=== PATIENT | male | born 1990 | race Caucasian/White ===

== ENCOUNTER 2019-12-09 14:32 | Inpatient (IN) | payer MEDICAID ==
[~2019-12-09] VITALS: Ht 182.9 cm; Wt 104.2 kg
--- NOTE | 2019-12-09 18:10 | NUR ---
Pt. admitted to the unit at 1810 after being transferred from [facility] on a 5150 for DTS. Pt. brought up in a w/c accompanied by security and tech. Safety check and belongings inventoried by Jovanna Newell. Pt. has a history of schizophrenia, methamphetamine use (last used 3 days ago), and alcohol use (last drink was yesterday). Pt. was previously reporting S/I with a plan to run in front of traffic or jump off a bridge. However he is currently denying S/I at this time, but admits he has been feeling suicidal X10 years. Pt. does report a previous S/A to cut himself with a knife. Pt. is homeless, and also presents with paranoid delusions r/t life on the streets. He stated, "Everything is falling apart, I'm homeless and people are chasing after me." No medical issues reported, however pt. has calluses on bottom of bilateral feet r/t walking outdoors. PRN Tylenol administered with effectiveness and Lotion provided. Will monitor. Also administered PRN Ativan at HS r/t anxiety, pt. appears to be resting comfortably.
[2019-12-09] MEDS: acetaminophen 325mg tablet PO PRN (19:33)
[2019-12-09 20:00] VITALS: BP 106/83
[2019-12-09] MEDS ORDERED: RISP3TAB11 PO (20:48)
[2019-12-09] MEDS ORDERED: AMPH10CA3 PO (20:48)
[2019-12-09] MEDS: risperiDONE 0.5mg tablet PO SCH (21:46)
--- NOTE | 2019-12-09 22:30 | NUR ---
Notified Dr. Pak, that pt. presents as a high suicide risk when administered the [place] Suicide Rating Scale, r/t having suicidal thoughts with a plan in the last month, however has not had any suicide attempts within the last 3 months. Pt. reports a hx of a suicide attempt to cut himself with a knife. Pt. is currently denying any S/I or thoughts of harming himself while on the unit. Per Dr. Pak, maintain Q 15min safety checks and no further interventions needed for pt. safety at this time. Will endorse to AM shift. Also, pt. reports a history of alcohol consumption of a six-pack of beer 3X a week. His last drink was yesterday (two shots), however he is not showing any s/s of alcohol withdrawal at this time (V/S WNL, no sweating, no tremors, no seizures). Pt. denies any history of alcohol withdrawal. Per Dr. Pak, monitor pt. V/S Q 4 hours while awake, call MD if 2 or more are out of range of if pt. is sweating/having tremors. Will input an intervention and endorse to AM shift.
[2019-12-09] MEDS ORDERED: magnesium hydroxide 30ml (MOM) UD suspension PO PRN (22:55)
[2019-12-09] MEDS ORDERED: acetaminophen 325mg tablet PO PRN (22:55)
[2019-12-09] MEDS ORDERED: mag hydrox/Alum hydrox/simeth 30ml oral suspension PO PRN (22:55)
[2019-12-09] MEDS ORDERED: loperamide 2mg capsule PO PRN (22:55)
[2019-12-09 23:00] VITALS: BP 126/74
[2019-12-09] MEDS: LORazepam 1 MG tablet PO PRN (23:14)
[2019-12-10 07:08] LABS: CHOL/HDL RATIO 3.4 (0.00-4.99); CHOLESTEROL 117 MG/DL (0-200); HDL CHOLESTEROL 34 MG/DL (35-60); LDL CHOLESTEROL 70 MG/DL (50-100); TRIGLYCERIDES 105 MG/DL (20-135)
[2019-12-10 07:11] LABS: HEMOGLOBIN A1C 5.3 % (4.5-6.2)
[2019-12-10 08:00] VITALS: BP 113/65
[2019-12-10] MEDS: AMPHETAMINE PO SCH (08:00)
[2019-12-10] MEDS: DEXTROAMPHETAMINE PO SCH (08:00)
--- NOTE | 2019-12-10 10:01 | NUR ---
Malnutrition consult. Patient reports recent weight loss of 10 lbs and poor appetite. History of EtOH drinking 6 pack of beer 3 times per week and methamphetamine abuse. Poor appetite may be r/t EtOH and methamphetamine abuse as it is an appetite suppressant. No documented weight history. Current weight 129% IBW. Eating 100% of regular diet. No edema. Does not appear to be malnourished at this time. Will follow per policy. Addendum: 12/10/19 at [address] Amended: Links added.
[2019-12-10 12:00] VITALS: BP 135/80
[2019-12-10] MEDS: acetaminophen 325mg tablet PO PRN ×2 (12:02→19:56)
[2019-12-10] MEDS: LORazepam 1 MG tablet PO PRN ×2 (13:49→19:55)
--- NOTE | 2019-12-10 17:07 | NUR ---
Nursing Progress Note Legal hold: N/A Client on Voluntary status Report received from JAZMÍN Tyson with use of SBAR. Why are they here: Pt. admitted to the unit at 1810 after being transferred from [facility] on a 5150 for DTS. Pt. brought up in a w/c accompanied by security and tech. Safety check and belongings inventoried by Jovanna Newell. Pt. has a history of schizophrenia, methamphetamine use (last used 3 days ago), and alcohol use (last drink was yesterday). Pt. was previously reporting S/I with a plan to run in front of traffic or jump off a bridge. However he is currently denying S/I at this time, but admits he has been feeling suicidal X10 years. Pt. does report a previous S/A to cut himself with a knife. Pt. is homeless, and also presents with paranoid delusions r/t life on the streets. He stated, "Everything is falling apart, I'm homeless and people are chasing after me." Assessment: What happened this shift: Patient is observed sleeping at change of shift. He joins others in the group room for meals but then returns back to his room to sleep. Patient states that he continues with thoughts of suicide but does not report a plan. He states that because he is on the unit he has lost his job. He reports straining the support of his parents who live here in [place] and feeling like he is alone. He states that he has struggled with his addiction to drugs and alcohol for a long time. He has had treatment before and has not really given it any thought currently. Patient requests to obtain back card information from his wallet to check balances. He states that he has anxiety and request Ativan. Patient denies any needs. S/I, H/I: passive suicidal thoughts A/VH: none reported Sleep: 8.5hrs NOC ADL's: Independent Group attendance: No Were meds taken: N/A Any med S/E: None reported or observed Mental Status Exam Appearance: Clean and wearing green scrubs. Eye contact: direct. Behavior: Cooperative, friendly Speech: Soft, normal rate and rhythm Mood: depressed Affect: blunted Thought process: Linear. Thought Content: his struggles Cognition: A/O X 4 Insight: Fair to good Judgment: Fair Interventions: PRN's used: Ativan for anxiety Therapeutic interventions: 1:1 therapeutic assessment, maintained safe therapeutic milieu, provided active listening with positive reinforcement, provided medication administration/education/monitoring as needed; Q15 safety checks. Restraints/seclusion/emergency medication: N/A Justification of Continued Inpatient Treatment: Continued therapeutic support and medication adjustment and monitoring needed to provide stabilization, prevent decompensation, and improve coping mechanisms decreasing risk to patient and re-admittance.
[2019-12-10 17:34] VITALS: BP 134/76
[2019-12-10 19:00] VITALS: BP 125/71
[2019-12-10] MEDS: risperiDONE 0.5mg tablet PO SCH (21:17)
--- NOTE | 2019-12-11 00:25 | NUR ---
Nursing Progress Note Legal hold: 5150 Client on legal hold for DTS Report received from JAZMÍN Gauthier with use of SBAR. Why are they here: Pt. admitted to the unit at 1810 after being transferred from [facility] on a 5150 for DTS. Pt. brought up in a w/c accompanied by security and tech. Safety check and belongings inventoried by Jovanna Newell. Pt. has a history of schizophrenia, methamphetamine use (last used 3 days ago), and alcohol use (last drink was yesterday). Pt. was previously reporting S/I with a plan to run in front of traffic or jump off a bridge. However he is currently denying S/I at this time, but admits he has been feeling suicidal X10 years. Pt. does report a previous S/A to cut himself with a knife. Pt. is homeless, and also presents with paranoid delusions r/t life on the streets. He stated, "Everything is falling apart, I'm homeless and people are chasing after me." Assessment What happened this shift: Pt isolates to room entire shift. Endorses paranoid thoughts "I have people after me, I know it's true." He states he has been in mental health hospitals in the past for SI and a couple attempts. "I am homeless from time to time so this is a big struggle for me. It really sets me over the edge. 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 "They came here for [place]. I had a good relationship with them but now they need to see me get better before they will let me back in, yeah know?" Pt states he has chronic lower back pain; requesting Motrin. Pt states he Trazodone gives "me restless legs" and he would not want it for sleep. Pt states he has not had a BM and would like something to help in the AM. Conferred with NICOLA Smalls and orders for ibuprofen, Benadryl and Colace granted. S/I, H/I: Denies Both; "I had some SI in the morning A/VH: Denies Both Sleep: See Sleep Assessment ADL's: Independent Group attendance: N/A Were meds taken: Yes Any med S/E: None reported nor observed Mental Status Exam Appearance: Clean, wearing green scrubs and nonskid socks. Eye contact: Direct Behavior: Cooperative, Isolated to room Speech: Soft, normal rate and rhythm Mood: Anxious 05/02 Affect: Blunted Thought process: Linear, Paranoid Thought Content: People are after him Cognition: A/Ox4 Insight: Poor to Fair Judgment: Fair Interventions: PRN's used: Ativan 1mg for anxiety, Tylenol 650mg for pain Therapeutic interventions: 1:1 therapeutic assessment, maintained safe therapeutic milieu, provided active listening with positive reinforcement, provided medication administration/education/monitoring as needed; Q15 safety checks. Restraints/seclusion/emergency medication: N/A Justification of Continued Inpatient Treatment: Continued therapeutic support and medication adjustment and monitoring needed to provide stabilization, prevent decompensation, and improve coping mechanisms decreasing risk to patient and re-admittance.
[2019-12-11 07:43] VITALS: BP 117/64
[2019-12-11] MEDS: AMPHETAMINE PO SCH (08:00)
[2019-12-11] MEDS ORDERED: docusate sod 100mg capsule PO PRN (08:00)
[2019-12-11] MEDS: DEXTROAMPHETAMINE PO SCH (08:00)
[2019-12-11] MEDS: ibuprofen 200mg tablet PO PRN (11:06)
[2019-12-11] MEDS: LORazepam 1 MG tablet PO PRN ×2 (11:06→19:48)
--- NOTE | 2019-12-11 12:07 | NUR ---
PSYCHOSOCIAL ASSESSMENT Jos is a 29 y/o male who was placed on 5150 for danger to self, "I was on the streets, started stressing out and thinking about suicide. I get down and depressed and want to jump off a bridge". Jos reported he has been homeless for the past 3 weeks, prior to that he was living with a friend. 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 He endorsed paranoid delusions regarding people following him. He has had multiple ED contacts and crisis evaluations recently. He reported he has been in [place] for the past year and a half, however, has [facility]. He reported he has been hospitalized a couple times in the past. He reported a previous suicide attempt "a long time ago" in which he cut himself with a knife. He initially stated he would like to leave [place] due to people following him. Discussed [facility] as NICOLA Austin, had discussed it with him. Jos reported he would like to go to [facility]. Provided him with the phone numbers to call to change his [facility] to [facility]. Roll Skinner will refer him to [facility]. Jos reported using meth on occasion (ED U tox was positive). He was cooperative with the assessment, however, stated he did not feel well and was coughing. He asked expert medical writer to check on him later. He was oriented x's 4. He denied any auditory hallucinations nor did he appear to be responding to internal stimuli.He was primarily paranoid. He denied any current SI or HI. GERSON Brownlee Addendum: 12/11/19 at 1210 by Slime Roa SS Amended: Links added.
--- NOTE | 2019-12-11 13:45 | NUR ---
[facility] REFERRAL Completed and faxed [facility] referral. GERSON Brownlee
--- NOTE | 2019-12-11 16:35 | NUR ---
Nursing Progress Note Legal hold: N/A Client on Voluntary status Report received from HARITHA Schultz with use of SBAR. Why are they here: Pt. admitted to the unit at 1810 after being transferred from [facility] on a 5150 for DTS. Pt. brought up in a w/c accompanied by security and tech. Safety check and belongings inventoried by Jovanna Newell. Pt. has a history of schizophrenia, methamphetamine use (last used 3 days ago), and alcohol use (last drink was yesterday). Pt. was previously reporting S/I with a plan to run in front of traffic or jump off a bridge. However he is currently denying S/I at this time, but admits he has been feeling suicidal X10 years. Pt. does report a previous S/A to cut himself with a knife. Pt. is homeless, and also presents with paranoid delusions r/t life on the streets. He stated, "Everything is falling apart, I'm homeless and people are chasing after me." Assessment What happened this shift: Patient has stayed in bed all day. VS done q8hrs. His last VS were 141/87, HR 85, O2 98, T 98.5, RR 14. Pt also c/o constipation and was given prune juice, MOM and colace. Reports he could have had a BM yesterday but "I don't know maybe 3-4 days ago." S/I, H/I: Passive SI A/VH: none reported Sleep: 9.75 NOC shift ADL's: Independent Group attendance: n/a Were Meds taken: PRN's Any med S/E: None reported or observed Mental Status Exam Appearance: Hospital scrubs Eye contact: Fair Behavior: Cooperative, polite Speech: Soft, normal rate and rhythm Mood: depressed Affect: blunted Thought process: Linear. Thought Content: being homeless Cognition: A/O X 4 Insight: Fair Judgment: Fair Interventions: PRN's used: MOM, Colace Therapeutic interventions: 1:1 therapeutic assessment, maintained safe therapeutic milieu, provided active listening with positive reinforcement, provided medication administration/education/monitoring as needed; Q15 safety checks. Restraints/seclusion/emergency medication: N/A Justification of Continued Inpatient Treatment: Continued therapeutic support and medication adjustment and monitoring needed to provide stabilization, prevent decompensation, and improve coping mechanisms decreasing risk to patient and re-admittance.
[2019-12-11 19:00] VITALS: BP 130/70
[2019-12-11] MEDS: acetaminophen 325mg tablet PO PRN (19:44)
[2019-12-11] MEDS: risperiDONE 0.5mg tablet PO SCH ×3 (20:01→20:42)
--- NOTE | 2019-12-11 20:02 | NUR ---
Pt. reported stomach upset, chronic back pain, and increased anxiety. He appears visibly anxious AEB restless leg movements, he states, "I feel like everyone out there is talking about me." PRN Maalox, Tylenol, and Ativan administered, will continue to monitor.
[2019-12-11] MEDS: traZODone 50mg tablet PO PRN (20:35)
[2019-12-11] MEDS ORDERED: diphenhydrAMINE 25mg capsule PO PRN (21:00)
--- NOTE | 2019-12-11 22:51 | NUR ---
Nursing Progress Note Legal hold: N/A Client on Voluntary status Report received from HARITHA Gatica with use of SBAR. Why are they here: Pt. admitted to the unit at 1810 after being transferred from [facility] on a 5150 for DTS. Pt. brought up in a w/c accompanied by security and tech. Safety check and belongings inventoried by Jovanna Newell. Pt. has a history of schizophrenia, methamphetamine use (last used 3 days ago), and alcohol use (last drink was yesterday). Pt. was previously reporting S/I with a plan to run in front of traffic or jump off a bridge. However he is currently denying S/I at this time, but admits he has been feeling suicidal X10 years. Pt. does report a previous S/A to cut himself with a knife. Pt. is homeless, and also presents with paranoid delusions r/t life on the streets. He stated, "Everything is falling apart, I'm homeless and people are chasing after me." Assessment What happened this shift: Patient has stayed in bed all evening shift, only getting up to request medications. Patients evening vitals signs are Temp 98.8, HR 89, RR 14, SPo2 98% and BP 130/70. Patient appears paranoid and backs away when nurse is attempting assessment and does not want RN to touch him. Patient states that his day was "Not good." and appears fearful with nurse in his presence. He is comparative for all medications and requests Trazodone for sleep which is provided. S/I, H/I: Passive SI A/VH: None reported Sleep: Currently sleeping, see sleep assessment ADL's: Independent Group attendance: No groups this shift Were Meds taken: PRN's Any med S/E: None reported or observed Mental Status Exam Appearance: Hospital scrubs Eye contact: Fair Behavior: Cooperative, polite Speech: Soft, normal rate and rhythm Mood: Depressed, fearful Affect: Blunted Thought process: Linear. Thought Content: Complaints about not sleeping Cognition: A/O X 4 Insight: Fair Judgment: Fair Interventions: PRN's used: Trazodone, tylenol, Ativan Therapeutic interventions: 1:1 therapeutic assessment, maintained safe therapeutic milieu, provided active listening with positive reinforcement, provided medication administration/education/monitoring as needed; Q15 safety checks. Restraints/seclusion/emergency medication: N/A Justification of Continued Inpatient Treatment: Continued therapeutic support and medication adjustment and monitoring needed to provide stabilization, prevent decompensation, and improve coping mechanisms decreasing risk to patient and re-admittance.
[2019-12-12 07:31] VITALS: BP 123/72
[2019-12-12] MEDS: DEXTROAMPHETAMINE PO SCH (08:00)
[2019-12-12] MEDS: AMPHETAMINE PO SCH (08:00)
[2019-12-12] MEDS: LORazepam 1 MG tablet PO PRN (16:25)
--- NOTE | 2019-12-12 18:01 | NUR ---
Nursing Progress Note Legal hold: N/A Client on Voluntary status Report received from HARITHA Adkins with use of SBAR. Why are they here: Pt. admitted to the unit at 1810 after being transferred from [facility] on a 5150 for DTS. Pt. brought up in a w/c accompanied by security and tech. Safety check and belongings inventoried by Jovanna Newell. Pt. has a history of schizophrenia, methamphetamine use (last used 3 days ago), and alcohol use (last drink was yesterday). Pt. was previously reporting S/I with a plan to run in front of traffic or jump off a bridge. However he is currently denying S/I at this time, but admits he has been feeling suicidal X10 years. Pt. does report a previous S/A to cut himself with a knife. Pt. is homeless, and also presents with paranoid delusions r/t life on the streets. He stated, "Everything is falling apart, I'm homeless and people are chasing after me." Assessment What happened this shift: Patient stayed in bed most of this shift. He was up more today than yesterday. He was observed sitting in the back of the community room watching a movie and having snacks. PRN Ativan and Tylenol given due to anxiety and a KIM. He discussed the program here asking questions and asked if he would get help w/housing. S/I, H/I: Passive SI A/VH: None reported Sleep: Napped throughout the day ADL's: Independent Group attendance: Outside group Were Meds taken: PRN's Any med S/E: None reported or observed Mental Status Exam Appearance: Hospital scrubs Eye contact: Fair Behavior: Cooperative, polite Speech: Soft, normal rate and rhythm Mood: Depressed, isolative Affect: Blunted Thought process: Linear. Thought Content: Homelessness Cognition: A/O X 4 Insight: Fair Judgment: Fair Interventions: PRN's used: Trazodone, tylenol, Ativan Therapeutic interventions: Provided therapeutic communication and active listening, provided resources for housing and [place] [facility] [place], provided medication administration/education/monitoring as needed; Q15 safety checks. Restraints/seclusion/emergency medication: N/A Justification of Continued Inpatient Treatment: Continued therapeutic support and medication adjustment and monitoring needed to provide stabilization, prevent decompensation, and improve coping mechanisms decreasing risk to patient and re-admittance.
[2019-12-12] MEDS: acetaminophen 325mg tablet PO PRN (18:12)
[2019-12-12 19:00] VITALS: BP 130/67
[2019-12-12] MEDS: traZODone 50mg tablet PO PRN (19:41)
[2019-12-12] MEDS: risperiDONE 0.5mg tablet PO SCH (19:42)
[2019-12-12] MEDS: oseltamivir phos 75mg capsule PO SCH (20:00)
[2019-12-12] MEDS: ibuprofen 200mg tablet PO PRN (20:19)
--- NOTE | 2019-12-13 03:41 | NUR ---
Nursing Progress Note Legal hold: N/A Client on Voluntary status Report received from HARITHA Gauthier with use of SBAR. Why are they here: Pt. admitted to the unit at 1810 after being transferred from [facility] on a 5150 for DTS. Pt. brought up in a w/c accompanied by security and tech. Safety check and belongings inventoried by Jovanna Newell. Pt. has a history of schizophrenia, methamphetamine use (last used 3 days ago), and alcohol use (last drink was yesterday). Pt. was previously reporting S/I with a plan to run in front of traffic or jump off a bridge. However he is currently denying S/I at this time, but admits he has been feeling suicidal X10 years. Pt. does report a previous S/A to cut himself with a knife. Pt. is homeless, and also presents with paranoid delusions r/t life on the streets. He stated, "Everything is falling apart, I'm homeless and people are chasing after me." Assessment What happened this shift: Patient stayed in bed most of the evening. He was agreeable to a 1:1 assessment this evening and seemed lest paranoid of staff. He requested his medications early this evening around 1945 which were given. hew as hesitant to take the medications, asking a couple times what they were before taking them. Patient then ate his snack in his room and promptly put himself to bed. S/I, H/I: Passive SI A/VH: None reported Sleep: Currently sleeping, see sleep assessment ADL's: Independent Group attendance: Outside group Were Meds taken: PRN's Any med S/E: None reported or observed Mental Status Exam Appearance: Hospital scrubs Eye contact: Fair Behavior: Cooperative, polite Speech: Soft, normal rate and rhythm Mood: Depressed, isolative Affect: Blunted Thought process: Linear. Thought Content: Homelessness Cognition: A/O X 4 Insight: Fair Judgment: Fair Interventions: PRN's used: Trazodone, Ibuprofen Therapeutic interventions: Provided therapeutic communication and active listening, provided resources for housing and changing medical from out of [facility] [place], provided medication administration/education/monitoring as needed; Q15 safety checks. Restraints/seclusion/emergency medication: N/A Justification of Continued Inpatient Treatment: Continued therapeutic support and medication adjustment and monitoring needed to provide stabilization, prevent decompensation, and improve coping mechanisms decreasing risk to patient and re-admittance.
[2019-12-13 07:59] VITALS: BP 125/76
[2019-12-13] MEDS: oseltamivir phos 75mg capsule PO SCH (09:31)
[2019-12-13] MEDS ORDERED: RISP0.5T3 PO (12:08)
--- NOTE | 2019-12-13 12:48 | NUR ---
DISCHARGE NOTE Patient states he has a bus ticket and will be going to a "[employer]" but he cannot tell me whcih one. Then he states, "God is good I will find one." Patient's personal belongings inventoried by Laxmi LEO and returned to him. Pt plans to get on a bus and leave this area. He shared that "people in [place] are strange, I have never encountered people like this before." He denies smoking and did not want any smoking cessation information.
== END 2019-12-13 12:50 | disposition short-term general hospital (02) | DRG 760 ==
LOC: ADULT MH 14:32
PROVIDERS: ADMIT Psychiatry & Neurology Psychiatry; ATTEND Psychiatry & Neurology Psychiatry
DX: F22 Delusional disorders (principal); R45.851 Suicidal ideations; F10.10 Alcohol abuse, uncomplicated; F90.9 Attention-deficit hyperactivity disorder, unspecified type; F15.10 Other stimulant abuse, uncomplicated; F43.21 Adjustment disorder with depressed mood; F17.210 Nicotine dependence, cigarettes, uncomplicated; F43.10 Post-traumatic stress disorder, unspecified; Z59.0 Homelessness; Z82.49 Family history of ischemic heart disease and other diseases of the circulatory system; Z81.8 Family history of other mental and behavioral disorders; Z71.6 Tobacco abuse counseling; Z71.41 Alcohol abuse counseling and surveillance of alcoholic; Z71.51 Drug abuse counseling and surveillance of drug abuser
CPT/HCPCS: 36415; 80061; 83036; 87081; 99285

== ENCOUNTER 2020-05-18 22:30 | Emergency (ER) | payer MEDICAID ==
[~2020-05-18] VITALS: Ht 182.9 cm; Wt 109.1 kg
[~2020-05-18 22:30] MED LIST: RISP0.5T3 PO
[2020-05-18 23:18] LABS: HEMOGLOBIN 15.6 g/dl (14.0-17.9); MEAN PLATELET VOLUME 7.6 FL (7.4-10.4)
[2020-05-18 23:19] LABS: BASOPHILS # (AUTO) 0.1 X10'3 (0-0.2); BASOPHILS % (AUTO) 0.5 % (0-1); EOSINOPHILS # (AUTO) 0.1 X10'3 (0-0.9); EOSINOPHILS % (AUTO) 0.5 % (0-6); HEMATOCRIT 46.3 % (42.0-52.0); LYMPHOCYTES # (AUTO) 1.7 X10'3 (1.1-4.8); LYMPHOCYTES % (AUTO) 13.3 % (21-51); MEAN CORPUSCULAR HEMOGLOBIN 29.3 PG (27.0-31.0); MEAN CORPUSCULAR HGB CONC 33.8 g/dL (33.0-36.5); MEAN CORPUSCULAR VOLUME 86.6 FL (78-98); MONOCYTES # (AUTO) 1.6 X10'3 (0-0.9); MONOCYTES % (AUTO) 12.4 % (2-12); NEUTROPHILS # (AUTO) 9.2 X10'3 (1.8-7.7); NEUTROPHILS % (AUTO) 73.3 % (42-75); PLATELET COUNT 248 X10'3 (140-440); RED BLOOD COUNT 5.34 X10'6 (4.70-6.10); RED CELL DISTRIBUTION WIDTH 12.9 % (11.5-14.5); WHITE BLOOD COUNT 12.6 X10'3 (4.5-11.0)
[2020-05-18 23:30] LABS: ALANINE AMINOTRANSFERASE 33 U/L (12-78); ALBUMIN 4.5 G/DL (3.4-5.0); ALBUMIN/GLOBULIN RATIO 1.5 (1.1-1.5); ALKALINE PHOSPHATASE 72 IU/L (46-116); ANION GAP 15 (8-16); ASPARTATE AMINO TRANSFERASE 20 U/L (10-37); BILIRUBIN,TOTAL 1.1 MG/DL (0.1-1.0); BLOOD UREA NITROGEN 17 MG/DL (7-18); BUN/CREATININE RATIO 12.8 (5.4-32.0); CALCIUM 9.2 MG/DL (8.5-10.1); CHLORIDE 102 MMOL/L (99-107); CREATININE 1.33 MG/DL (0.60-1.10); ETHANOL < 0.010 GM/DL (0.0-0.010); GLUCOSE 112 MG/DL (70-104); POTASSIUM 3.4 MMOL/L (3.5-5.1); SODIUM 139 MMOL/L (135-145); TOTAL CARBON DIOXIDE 21.6 MMOL/L (24-32); TOTAL PROTEIN 7.6 G/DL (6.4-8.2); eGFR 63 ML/MIN
[2020-05-18 23:58] LABS: URINE AMPHETAMINE SCREEN POSITIVE (Neg); URINE BARBITUATE SCREEN NEGATIVE (Neg); URINE BENZODIAZEPINES SCREEN NEGATIVE (Neg); URINE CANNABINOID SCREEN NEGATIVE (Neg); URINE COCAINE SCREEN NEGATIVE (Neg); URINE METHADONE SCREEN NEGATIVE (Neg); URINE OPIATE SCREEN NEGATIVE (Neg); URINE PHENCYCLIDINE SCREEN NEGATIVE (Neg)
--- NOTE | 2020-05-19 00:29 | NUR ---
Received report from WINCH OPERATOR Anyi. Patient ambulated independently to ER Overflow Bed 20 without any issue. Pt was cooperative with staff during transfer. Patient verbalizes that he has been hearing "weird shit and wants to talk to the police about it, for some reason 'they' say they want to kill me". Patient reassured he was safe and that we could try to sort everything out in the morning. Patient settled into bed without issue
--- NOTE | 2020-05-19 00:50 | NUR ---
Packet sent to [facility]
--- NOTE | 2020-05-19 01:21 | NUR ---
Pt is currently sitting up at the base of the bed awake. No apparent s/s of distress noted.
--- NOTE | 2020-05-19 02:06 | NUR ---
Pt continues to sit up at the end of the bed and occasionally with lay down but remains awake. Pt c/o not being able to sleep. Will talk with MD about pt possibly needing medicaiton tonight
--- NOTE | 2020-05-19 02:14 | NUR ---
Asked patient about taking the Zyprexa as ordered by and he stared off into the distance and just muttered "ummm" then finally said "no".
[2020-05-19] MEDS: OLANZapine 5mg rapidly disint. tablet PO ONE ×2 (03:04→05:53)
--- NOTE | 2020-05-19 03:09 | NUR ---
PT continues to sit up in the middle of his bed. Pt continues to refuse medication. No apparent s/s of distress noted
--- NOTE | 2020-05-19 04:06 | NUR ---
Pt continues to sit awake in the middle of his bed. No apparent s/s of distress noted
--- NOTE | 2020-05-19 05:01 | NUR ---
Pt is sitting on his bed with his head down in his lap. Pt was cooperative for his lab draw. No apparent s/s of distress noted
--- NOTE | 2020-05-19 05:28 | NUR ---
Pt called RN to the bedside to "ask a question". Pt asked RN if the police would be coming by to see him today. Informed the patient that there would be no reason for the police to come see him. Pt then responded with "so then I'm just tripping". RN tried to reassure and calm the patient but he just started staring off into the distance past the RN and mumbling as though he were talking to someone else. Reassured the patient that he was ok and he proceeded to sit back down on his bed with wide eyes and facing the wall looking like he is talking to someone
--- NOTE | 2020-05-19 05:39 | NUR ---
Pt came to the nurses station asking to make a phone call. When asked who he was wanting to call he stated "I want to call law enforcement to find out what is happening to me". When asked what he means he stated "there have been these people following me for 6 months and I came here last night to try to get away from them". Pt is very paranoid that "the people" are trying to harm him. When told he is safe here and asked to return to his bed he just started nervously pacing saying he just wants to figure out what is going on
--- NOTE | 2020-05-19 05:54 | NUR ---
Pt continued to be agitated and appears to be "talking to the voices". Pt was agreeable to taking Zyprexa tablet to try and help calm him down. Pt still continues to dwell on the idea of "calling an officer to find out what is going on"
[2020-05-19] MEDS ORDERED: OLANZapine 5mg rapidly disint. tablet PO ONE (06:05)
[2020-05-19] MEDS ORDERED: LORazepam 1 MG tablet PO ONE (06:05)
--- NOTE | 2020-05-19 06:34 | NUR ---
pt standing in the hallway divereted the pt to sit in the bed elva that we can take the vitals.
[2020-05-19 06:36] VITALS: BP 147/106
--- NOTE | 2020-05-19 06:39 | NUR ---
dr bazan came to nurses station asking about the pt status ,informed that pt is little axnious ,hearing voices ,standing in the hallway ,as per md call him if they need any medication.
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
--- NOTE | 2020-05-19 08:10 | NUR ---
pt standing in hallway looking at the exit door.walking back and forth to bed and hallway.talks to alec licona and share what he is feeling and then go back to [facility] bed with psychological support.
--- NOTE | 2020-05-19 09:20 | NUR ---
pt sleeping with bible in his hand at this time,no distress noted.rr danielle and non labored .will cont to monitor.
--- NOTE | 2020-05-19 10:28 | NUR ---
pt seen by [facility] alissa good ,but pt was sleepy .as per [facility] he will come back in few hours to talk to the pt.pt sleeping at this time in rgt lateral position,no distress noted .will cont to monitor.
--- NOTE | 2020-05-19 11:22 | NUR ---
pt sleeping at this time,no distress noted,rr even and nonlabored.will cont to monitor.
--- NOTE | 2020-05-19 12:51 | NUR ---
pt sleeping in bed quietly in his lft lateral position,no distress noted ,rr even and nonlabored .will cont to monitor.
--- NOTE | 2020-05-19 14:25 | NUR ---
pt has not had his lunch ,refused to eat and slept again,pt lunch tray at bedside ,no distress noted will cont to monitor.
--- NOTE | 2020-05-19 14:44 | NUR ---
pt up to use restroom at this time,will cont to monitor.
--- NOTE | 2020-05-19 14:47 | NUR ---
pt talking to [facility] eval ,pt is cooperative ,looks more relaxed after the sleep.
--- NOTE | 2020-05-19 17:29 | NUR ---
optical manager outside the overflow by the [employer] security consultant non emergent ,cab outside waiting for the pt.
== END 2020-05-19 17:29 | disposition home or self-care (01) ==
LOC: ER 22:30
DX: R45.851 Suicidal ideations (principal); F20.9 Schizophrenia, unspecified; F19.10 Other psychoactive substance abuse, uncomplicated; R10.9 Unspecified abdominal pain; G89.29 Other chronic pain; F15.90 Other stimulant use, unspecified, uncomplicated; F17.200 Nicotine dependence, unspecified, uncomplicated; Z59.0 Homelessness; Z79.899 Other long term (current) drug therapy
CPT/HCPCS: 36415; 80053; 80305; 80320; 84484; 85025; 93005; 99284